=== PATIENT | female | born 1955 | race Caucasian/White ===

== ENCOUNTER 2016-11-29 12:29 | Day surgery (SDC) | payer OTHER ==
[2016-11-26 11:43] LABS: HEMATOCRIT 37.3 % (36.0-48.0); HEMOGLOBIN 12.1 g/dL (12.0-16.0)
[2016-11-26 11:58] LABS: BUN (BLOOD UREA NITROGEN) 14 MG/DL (6-23); CALCIUM, SERUM 9.5 MG/DL (8.5-10.4); CHLORIDE, SERUM 108 MMOL/L (96-112); CO2 (CARBON DIOXIDE) 31 MMOL/L (24-34); CREATININE 0.77 MG/DL (0.55-1.02); GFR AFRICAN AMERICAN 97 ML/MIN (>=60); GFR NON AFRICAN AMERICAN 83 ML/MIN (>=60); GLUCOSE, SERUM 88 MG/DL (60-99); POTASSIUM, SERUM 4.2 MMOL/L (3.5-5.3); SODIUM, SERUM 143 MMOL/L (135-148)
--- NOTE | ~2016-11-29 | OP ---
Record Of Operation [facility] [address] [place]. [address] NAME: TAL FLOWER : 55 STATUS : [facility]#: [id number] AGE: 61 ADM/REG DATE : 11/29/16 MR#: [id number] REPORT SERV DATE: 11/30/16 DICTATED BY: LEVY MI III DATE: 11/29/16 REPORT STATUS : Draft TRANSCRIBED BY: MODL DATE: 11/29/16 DATE OF PROCEDURE: 11/29/2016 POSTOPERATIVE DIAGNOSIS: Bladder tumor. POSTOPERATIVE DIAGNOSIS: Bladder tumor. PROCEDURE: Transurethral cystoscopy, bilateral retrograde pyelograms, transurethral resection of bladder tumors, 2 to 5 cm. SURGEON: Levy Mi M.D. ANESTHESIA: General. SPECIMEN: Bladder tumor. DRAIN: None. BLOOD LOSS: 10 mL. INDICATION: Ms. Flower is a 61-year-old white female who was found to have some papillary bladder tumors noted on cystoscopy during evaluation of gross hematuria. She provides consent for cystoscopy, bilateral retrograde pyelograms, and transurethral resection of bladder tumor. PROCEDURE IN DETAIL: After consent was obtained, the patient was identified. She was taken to the OR and put to sleep. She was positioned in the low lithotomy position and prepped and draped in the usual fashion. The 22-[place] cystoscope was made ready and advanced into the bladder. The tumors were multiple, small, low-grade appearing papillary tumors on the right wall around the right ureteral orifice. The orifice did not appear to be involved. A cone-tipped ureteral catheter was flushed with contrast and inserted into right ureteral orifice. A retrograde study was obtained which showed a normal retrograde collecting system. No filling defects suspicious for tumor were noted. The left retrograde pyelogram was obtained as well and appeared normal as well. The cystoscope was removed with the bladder left full. The female sounds were used to dilate a 28-[place]. The 26-[place] resectoscope was then inserted, and transurethral resection of the bladder tumor was performed. These were very low grade and loosely attached to the urothelium mainly because of the large area involved, I mainly swept the tumors off the urothelium and cauterized the bleeding points. This was done to minimize scar tissue formation. After all visible papillary growths were treated, hemostasis was obtained with the roller ball. The tissue was then flushed out and passed off as specimen when there was adequate hemostasis. The bladder was drained. The scope removed. The patient was awakened and taken to recovery in stable condition. Record Of Operation [facility] [address] [place] [address] NAME: TAL FLOWER : 55 STATUS : [facility] PAT#: [id number] AGE: 61 ADM/REG DATE : 11/29/16 MR#: [id number] REPORT SERV DATE: 11/30/16 DICTATED BY: LEVY MI III DATE: 11/29/16 REPORT STATUS : Draft TRANSCRIBED BY: MODAldo DATE: 11/29/16 PH/ALECIA Levy Mi III, M.D. / [id number]
[~2016-11-29 12:29] MED LIST: BIOTIN5 MG PO; CO Q-10100 MG PO; DSS PO; ESTRACE0.5 MG PO; FIBER GUMMY; FLAXSEED OIL1000 MG PO; KRILLOIL PO; NIACIN100 PO; VASOTEC20 MG PO
[2017-02-25] MEDS ORDERED: X5 PO (15:40)
== END 2016-11-29 21:51 | disposition home or self-care (01) ==
LOC: SDC 12:29
PROVIDERS: Urology
PROC: 0TBB8ZZ Excision of Bladder, Via Natural or Artificial Opening Endoscopic (ICD-10-PCS; principal; 2016-11-29 14:45)
DX: C67.9 Malignant neoplasm of bladder, unspecified (principal); I10 Essential (primary) hypertension; F41.9 Anxiety disorder, unspecified; Z88.0 Allergy status to penicillin; Z88.2 Allergy status to sulfonamides; Z90.710 Acquired absence of both cervix and uterus; Z90.49 Acquired absence of other specified parts of digestive tract
CPT/HCPCS: 80048; 85014; 85018; 88307; 93005; A9270-GY; J2250; J2270; J2405; J2710; J3010; Q9967